=== PATIENT | male | born 2005 | race Caucasian/White ===

== ENCOUNTER 2024-09-14 21:19 | Emergency (ER) | payer MEDICAID, SELFPAY ==
[2024-09-14 21:20] VITALS: BMI 34.8
--- NOTE | 2024-09-14 21:39 | EDNOTE_ITS ---
ED General RME/HPI General Chief complaint: General Adult/Misc Complain Stated complaint: INGROWN TOENAIL BILATERAL Time Seen by Provider: 09/14/24 21:26 Arrival date/time: 09/14/24 21:19 RME / HPI RME / HPI narrative: This section includes all my notes and documentations, including HPI, PE, and ED course. Zaid Marinelli MD HPI: 19yo male here with a couple week history of severe pain in both big toes. With redness and swelling. Sister thinks they are due to ingrown toenails. No fever chills or bodyaches. No other complaints. ROS: All negative except as documented in HPI. Physical Exam: General: Alert and oriented. Appears uncomfortable. Eyes: Conjunctivae and lids clear. ENT: No nasal congestion. Neck: Supple. Lungs: No respiratory distress. Skin: Warm and dry. Neuro: Alert and oriented X 3. Great Toe: Each toe remarkable for bilateral ingrown nails. Each toe remarkable for severe edema and erythema and calor and tenderness. At this point, diagnoses include Ingrown nail and Cellulitis. Treatment here included Tylenol with Codeine, Augmentin, Ibuprofen, and topical lidocaine. He started to feel better. Recommended a trial of outpatient treatment. Based on my best medical judgment, made decision no further evaluation or treatment indicated at this time. Patient understands and agrees to the discharge instructions customized and printed, see below. Discharge Instructions from Dr. Marinelli printed for you: 1. You have severe ingrown nails of your both big toes with infections. 2. To help the healing process, minimal weightbearing and elevate above the waist level for 3 days is much as possible. 3. Augmentin to kill the germs causing the infections. 4. Ibuprofen 800 mg every 6-8 hours today and tomorrow to decrease inflammation then as needed. Tylenol with codeine for severe pain. 5. Prednisone to decrease inflammation and swelling. 6. During the day, soak in warm water and Epsom salt for 20 minutes every 4 hours. Try to gently pull out the ingrown nails. As the swelling goes down, this can be possible. 7. Apply topical lidocaine ointment for pain relief. 8. See a private doctor on 09/16/2024 for recheck and further care. If needed, ask for help finding a doctor who can pull out the toenails for you. 9. Seek immediate medical care with worsening, fever, or with any concerns. Zaid Marinelli MD Related Data Previous Rx's ?Medication ?Instructions ?Recorded polyethylene glycol 3350 17 4 g PO QDAY PRN constipati on #119 09/25/23 gram/dose oral powder (ClearLax) grams acetaminophen 300 mg-codeine 30 mg 2 tab PO Q8H PRN pa in #20 tabs 09/14/24 tablet amoxicillin 875 mg-potassium 1 tab PO BID #20 tabs 03/02 clavulanate 125 mg tablet ibuprofen 800 mg tablet 800 mg PO Q8H PRN pain #30 t abs 09/14/24 prednisone 50 mg tablet 50 mg PO QDAY #5 tabs Allergies Allergy/AdvReac Type Severity Reaction Status Date / Time No Known Allergies Allergy Verified 11/09/23 01:18 Review of Systems Review of Systems Systems Reviewed: All systems reviewed, normal except as documented Past Medical History Past Medical History CARDIAC: Negative Congestive Heart Failure RESPIRATORY: Negative Chronic Obstructive Pulmonary Disease (COPD) GENITOURINARY: Positive Renal Disease and Dialysis ENDOCRINE: Negative Diabetes Mellitus Type 1 or Diabetes Mellitus Type 2 Social History SMOKING STATUS: Never smoker SECOND HAND EXPOSURE: No SUBSTANCE USE: marijuana ED Exam Narrative Physical exam: As noted in HPI. Course Quality Measures none Orders Category Date Time Status ACETAMINOPHEN w/COD 300-30 [Tylenol w/Cod #3] Med 09/14/24 21:44 Discontinued 2 tab PO X1 ONE Amoxicillin/Pot Clav 875 [Augmentin 875] Med 09/14/24 21:44 Discontinued 1 tab PO X1 ONE Ibuprofen Tab [Motrin Tab] Med 09/14/24 21:44 Discontinued 800 mg PO X1 ONE Lidocaine/Prilocaine Cr 5Gm [Emla Cr] Med 09/14/24 21:44 Discontinued See Dose Instructions TOP X1 ONE Vital Signs Vital signs: Vital Signs Temperature 99.6 F 09/14/24 22:02 Pulse Rate 79 09/14/24 22:02 Respiratory Rate 18 09/14/24 22:02 Blood Pressure 131/88 H 09/14/24 22:02 Pulse Oximetry (%) 96 09/14/24 22:02 Oxygen Delivery Method Room Air 09/14/24 22:02 [facility] Patient data External records reviewed:: [facility] previous records (Per chart review, patient was seen here on 11/09/23 for a leg sprain.) Clinical information provided by:: patient Social determinants that could affect healthcare access:: none Patient has the following chronic illnesses:: none How is presenting disease/condition affected by chronic disease/condition?: no chronic disease Evaluation data The following diagnostics were reviewed and interpreted by me:: other (specify) (none) Lab and/or radiology exams considered but not ordered:: none Interpretation Summary: none Medications Medications considered but not ordered:: none Medication administrations:: Medication Administration History Discontinued Medications Acetaminophen/Codeine Phosphate (Acetaminophen W/Cod 300-30 Tablet) 2 tab PO X1 ONE Stop: 09/14/24 21:45 Last Admin: 09/14/24 22:17 Dose: 2 tab Documented By: RB Amoxicillin/Clavulanate Potassium (Amoxicillin/Pot Clav 875 Tablet) 1 tab PO X1 ONE Stop: 09/14/24 21:45 Last Admin: 09/14/24 22:17 Dose: 1 tab Documented By: RB Ibuprofen (Ibuprofen Tab 400 Mg Tablet) 800 mg PO X1 ONE Stop: 09/14/24 21:45 Last Admin: 09/14/24 22:17 Dose: 800 mg Documented By: RB Lidocaine/Prilocaine (Lidocaine/Prilocaine Cr 5gm 5 Gm Tube) 0 gm TOP X1 ONE Stop: 09/14/24 21:45 Last Admin: 09/14/24 22:18 Dose: 5 gm Documented By: RB Comments: 1 application Tylenol with Codeine, Augmentin, Ibuprofen, Emla Consultations Consultation(s) initiated? (list below): No Diagnosis Differential Diagnosis ED Complaint MDM: Made clinical diagnosis of ingrown nails with cellulitis. Most likely diagnosis given after review of the tests above:: Ingrown nail Cellulitis Admission Indicated Admission indicated?: not indicated Explain why admission is indicated or not indicated:: No criteria for admission. Admission Request Was there a request for admission?: No Disposition Plan Disposition Plan: Discharge Discharge Attestation Discharge Attestation: The patient and all family members were given an opportunity to ask questions and understood the discharge instructions. Discharge instructions specifically effects, indications for sooner follow up or return to the emergency department, and the expected course of current diagnosis. Patient condition: Stable Medical Decision Making MDM Narrative MDM Narrative: Scribe Attestation: 09/14/24 Joleen Figueroa am scribing for and in the presence of Dr. Marinelli. Differential Diagnosis Differential Diagnosis: Made clinical diagnosis of ingrown nails with cellulitis. Discharge Plan Plan Patient Disposition: HOME (Self Care) Prescriptions/Referrals Prescriptions/Med Rec: New ibuprofen 800 mg tablet 800 mg PO Q8H PRN (Reason: pain) Qty: 30 0RF acetaminophen-codeine 300-30 mg tablet 2 tab PO Q8H MDD 6 PRN (Reason: pain) Qty: 20 0RF prednisone 50 mg tablet 50 mg PO QDAY Qty: 5 0RF amoxicillin-pot clavulanate 875-125 mg tablet 1 tab PO BID Qty: 20 0RF No Action polyethylene glycol 3350 [ClearLax] 17 gram/dose powder 4 g PO QDAY PRN (Reason: constipation) Qty: 119 0RF Referrals: Temporary Provider,ED [Physician] - In 1 week Problem List Clinical Impression: Ingrown nail, Cellulitis Patient/Caregiver Discharge Instructions Discharge Activity: activity as tolerated Education Materials: ED Toenail Ingrown Infec Abx Onl Additional Instructions: Discharge Instructions from Dr. Marinelli printed for you: 1. You have severe ingrown nails of your both big toes with infections. 2. To help the healing process, minimal weightbearing and elevate above the waist level for 3 days is much as possible. 3. Augmentin to kill the germs causing the infections. 4. Ibuprofen 800 mg every 6-8 hours today and tomorrow to decrease inflammation then as needed. Tylenol with codeine for severe pain. 5. Prednisone to decrease inflammation and swelling. 6. During the day, soak in warm water and Epsom salt for 20 minutes every 4 hours. Try to gently pull out the ingrown nails. As the swelling goes down, this can be possible. 7. Apply topical lidocaine ointment for pain relief. 8. See a private doctor on 09/16/2024 for recheck and further care. If needed, ask for help finding a doctor who can pull out the toenails for you. 9. Seek immediate medical care with worsening, fever, or with any concerns. Print Language: Mauritanian Stand Alone Forms: Brittany Award Info., Patient Portal Info Letter
[2024-09-14 22:02] VITALS: BP 131/88; PULSE 79; RESP 18; TEMP 37.6; O2SAT 96
[2024-09-14] MEDS: ACETAMINOPHEN w/COD 300-30 TABLET 2 TAB PO (22:17)
[2024-09-14] MEDS: IBUPROFEN TAB 400 MG TABLET 800 MG PO (22:17)
[2024-09-14] MEDS: AMOXICILLIN/POT CLAV 875 TABLET 1 TAB PO (22:17)
[2024-09-14] MEDS: LIDOCAINE/PRILOCAINE CR 5GM 5 GM TUBE TOP (22:18)
== END 2024-09-14 22:34 | disposition home or self-care (01) ==
LOC: SERX 22:39
PROVIDERS: Emergency Provider Emergency Medicine; PCP Nurse Practitioner Family
DX: L60.0 Ingrowing nail (principal); L03.032 Cellulitis of left toe; L03.031 Cellulitis of right toe
CPT/HCPCS: 99282; A9270

== ENCOUNTER 2025-04-23 06:26 | Emergency (ER) | payer MEDICAID, SELFPAY ==
[2025-04-23 06:28] VITALS: BMI 33.5
[2025-04-23 06:34] VITALS: BP 126/86; PULSE 77; RESP 17; TEMP 37.1; O2SAT 99
--- NOTE | 2025-04-23 06:47 | XR_ITS ---
Examination: Abdomen sonogram, Limited Date and time of exam: April 23, 2025, 0734 hours INDICATIONS: Right upper abdominal pain beginning last night 6:00 p.m. after dinner Technique: Real-time mooney scale transabdominal sonographic images of the upper abdomen obtained. Findings: Multiple gallstones Normal gallbladder wall 0.15 cm Common bile duct is enlarged for a patient of this age, 0.60 cm no definite stones Pancreas obscured by bowel gas Liver 17.63 cm no liver lesions Normal hepatopetal portal venous flow Patent IVC IMPRESSION: Cholelithiasis, negative for cholecystitis Abnormal enlargement common bile duct 0.60 cm, if biliary colic is a clinical consideration, suggest MRCP follow-up
--- NOTE | 2025-04-23 06:47 | XR_ITS ---
Examination: CT abdomen and pelvis without contrast. Coronal 3-D reconstructions. Sagittal 2-D reconstructions. Date and time of exam: April 23, 2025, 0807 hours INDICATIONS: Onset bilateral flank pain beginning this morning CTDI: vol (mGy): 12.9 DLP: (mGycm): 742 Technique: Axial images of the abdomen have been obtained, 3 mm slice thickness Intravenous contrast material has not been administered. Low dose protocols were performed. One or more of the following dose reduction techniques were used; automated exposure control, adjustment of the mA and/or KV according to patient size, use of iterative reconstruction technique. Findings: 5 mm pulmonary nodule right lower lobe image 28 No visualized liver or splenic lesion No gallstones No pancreatic or adrenal mass No renal or ureteral calculi, no hydronephrosis Aorta normal size No bowel obstruction Normal appendix No diverticulitis Normal seminal vesicles No prostatomegaly Contracted urinary bladder no bladder calculi Moderate osteopenia IMPRESSION: 5 mm pulmonary nodule right lower lobe, recommend PA lateral chest follow-up No renal or ureteral calculi, no hydronephrosis Normal appendix No bowel obstruction or diverticulitis No bladder mass or bladder calculi
--- NOTE | 2025-04-23 07:09 | PD.EDADULT ---
ED General RME/HPI General Chief complaint: Abdominal Pain Stated complaint: BILATERAL FLANK PAIN Time Seen by Provider: 04/23/25 06:33 Arrival date/time: 04/23/25 06:26 RME / HPI RME / HPI narrative: 20-year-old male with a past medical history of rhabdomyolysis secondary to a trauma over a year ago when he was placed on dialysis for a brief period of time and was subsequently taken off of it, who presents to the ER complaining of bilateral flank pain radiating towards his stomach. Related Data Previous Rx's ?Medication ?Instructions ?Recorded polyethylene glycol 3350 17 4 g PO QDAY PRN constipation #119 09/25/23 gram/dose oral powder (ClearLax) grams acetaminophen 300 mg-codeine 30 mg 2 tab PO Q8H PRN pain #20 tabs 09/14/24 tablet amoxicillin 875 mg-potassium 1 tab PO BID #20 tabs 09/14/24 clavulanate 125 mg tablet ibuprofen 800 mg tablet 800 mg PO Q8H PRN pain #30 tabs 09/14/24 prednisone 50 mg tablet 50 mg PO QDAY #5 tabs 09/14/24 Allergies Allergy/AdvReac Type Severity Reaction Status Date / Time No Known Allergies Allergy Verified 04/23/25 06:27 ED Exam Narrative Physical exam: Constitutional: Patient alert and oriented. Well appearing. No acute distress. Not toxic appearing. Head: Normocephalic, atraumatic. Eyes: Periorbital regions bilaterally normal to inspection. Conjunctiva clear bilaterally. Sclera anicteric bilaterally. Pupils equal, round, reactive to light bilaterally. Extraocular movements intact bilaterally. Mouth/Throat: Mucous membranes moist. No stridor or muffled voice. No trismus. Handling secretions without difficulty. Airway widely patent. Neck: Supple. Trachea midline. No JVD. No nuchal rigidity. Normal range of motion. Respiratory: Normal effort. No accessory muscle use or respiratory distress. Lungs clear to auscultation bilaterally without rhonchi, wheezes, or crackles. Cardiovascular: RRR. Normal S1/S2. No murmurs or rubs. Radial pulses intact bilaterally. Abdomen: Soft. Non-distended. Positive mild epigastric tenderness. No pulsatile mass. No guarding or rebound. Negative Paz?s sign. Negative McBurney?s point tenderness. Negative Rovsing?s. Back: No midline tenderness or step-offs. No CVA tenderness to palpation bilaterally. Positive paralumbar tenderness to palpation bilaterally Upper Extremities: No gross deformities. Lower Extremities: No gross deformities. No edema or calf tenderness. Neuro: Speech normal. No gross motor or sensory deficits to upper or lower extremities bilaterally. GCS 15. CN II?XII grossly intact. Skin: Warm, dry, normal color. Psych: Normal affect. Cooperative. Normal insight. Course Quality Measures none Orders Category Date Time Status EKG (ED ONLY) *Do not use* NOW Care 04/23/25 09:48 Completed NPO NOW Care 04/23/25 06:47 Active Diet NPO (NOW) Diet 04/23/25 06:[address] abdomen pelvis wo con Stat Exams 04/23/25 06:47 Completed EKG (ED Only) Stat Exams 04/23/25 09:48 Draft US abdomen limited Stat Exams 04/23/25 06:47 Completed XR chest 2V Stat Exams 04/23/25 08:50 Completed Amylase Stat Lab 04/23/25 09:53 Completed CBC Stat Lab 04/23/25 07:05 Completed CBC Stat Lab 04/23/25 09:53 Completed CMP [Comprehensive Metabolic Panel] Stat Lab 04/23/25 07:05 Completed CMP [Comprehensive Metabolic Panel] Stat Lab 04/23/25 09:53 Completed Lipase Stat Lab 04/23/25 07:05 Completed Lipase Stat Lab 04/23/25 09:53 Completed Partial Thromboplastin Time Stat Lab 04/23/25 07:05 Completed Prothrombin Time with INR Stat Lab 04/23/25 07:05 Completed Urinalysis Stat Lab 04/23/25 07:25 Completed Urine Culture Stat Lab 04/23/25 07:25 Received Ketorolac Inj [Toradol Inj] Med 04/23/25 06:47 Discontinued 30 mg IM X1 ONE Ondansetron Odt [Zofran Odt] Med 04/23/25 06:47 Discontinued 4 mg PO X1 ONE Reevaluation(s) Reevaluation #1: At the time of reassessment, the patient remains alert and oriented ?3 with GCS 15. Vitals are normal, pain is controlled, and the patient is tolerating oral intake without nausea or vomiting. The patient is agreeable to discharge and verbalizes understanding of the diagnosis, studies, treatment plan, medications (including side effects/precautions), and strict ER return precautions as discussed in the ED. All concerns were addressed, and the patient is comfortable with the plan. Time: 11:26 Vital Signs Vital signs: Vital Signs Temperature 98.8 F 04/23/25 06:34 Pulse Rate 77 04/23/25 06:34 Respiratory Rate 17 04/23/25 06:34 Blood Pressure 126/86 H 04/23/25 06:34 Pulse Oximetry (%) 99 04/23/25 06:34 Oxygen Delivery Method Room Air 04/23/25 06:34 PROCEDURES: EKG Interpretation #1: Date of EK04/23/25 Time of EK:25 Rate: 67 Interpretation: Reviewed by me EKG Impression: Normal sinus rhythm, No acute ST-T changes and Normal axis Discharge Plan Plan Patient Disposition: HOME (Self Care) Patient condition on transfer: Stable Prescriptions/Referrals Prescriptions/Med Rec: No Action polyethylene glycol 3350 [ClearLax] 17 gram/dose powder 4 g PO QDAY PRN (Reason: constipation) Qty: 119 0RF ibuprofen 800 mg tablet 800 mg PO Q8H PRN (Reason: pain) Qty: 30 0RF acetaminophen-codeine 300-30 mg tablet 2 tab PO Q8H MDD 6 PRN (Reason: pain) Qty: 20 0RF prednisone 50 mg tablet 50 mg PO QDAY Qty: 5 0RF amoxicillin-pot clavulanate 875-125 mg tablet 1 tab PO BID Qty: 20 0RF Referrals: Darrell Alexandra PA-C [Primary Care Provider] - In 1 week Problem List Clinical Impression: Biliary colic, Cholelithiasis Patient/Caregiver Discharge Instructions Education Materials: Discharge Instructions for ..., ED Gallstones with Biliary Colic Additional Instructions: Follow up with your primary medical doctor within 24 hours. Return to the Emergency Room immediately for any new, worsening, continuing symptoms or any concerns at all. Return to the Emergency Room within 24 hours if you are unable to follow up with your primary medical doctor within 24 hours. Follow-up with Dr. Maurer this week as well. Eat a bland diet and avoid fatty foods. If your pain reoccurs at all you need to return to the ER immediately. Print Language: Scottish Stand Alone Forms: Brittany Award Info., Patient Portal Info Letter JORJE/CHIN Supervising Physician PA/[employer] Supervising Physician: Dr. Marinelli MDM Narrative [facility] hospital course (for use when minimal MDM required): [facility] The patient presents with abdominal pain without definite explanation found on evaluation today. It is very likely that patient is experiencing biliary colic. However, there are no signs of peritonitis or other life-threatening or serious etiology. I discussed the case in detail with Dr. Maurer GI specialist who advised patient safe for outpatient follow-up with PCP this week with strict ER return precautions. I have low suspicion for choledocholithiasis at this time. I clinically doubt any cholecystitis or cholangitis. Serial abdominal exams benign without peritonitis and patient tolerating p.o. without difficulty. I considered admission; however, given negative work up and imaging, admission is not indicated. The patient appears stable for discharge and has been instructed to return for re-evaluation immediately if the symptoms worsen or change in any way. If the symptoms are not resolved in 24-48 hours, the patient is asked to get rechecked by their PMD or return to the ED. Patient understands that if his pain reoccurs he needs to return to the ER immediately. Labs Lab(s) Interpretation(s): EKG without acute ischemia, high grade AV block, arrhythmia CBC without severe leukocytosis, anemia, or thrombocytopenia-WBC count is normal at 10 CMP without severe hyperbilirubinemia, transaminitis, acute renal failure or severe electrolyte derangement-AST is minimally elevated at 43, ALT is minimally elevated at 70 however alk phos is within normal limits at 103 and total bilirubin is low at 0.2 mg Lipase without severe elevation-normal at 30 UA negative Repeat lab work notes AST trending minimally down from 43-37, ALT trending minimally down from 70-63, total bili trending minimally up from 0.2-0.3 however no significant change, alk phos minimally decreased from 103-101, lipase remains equivalent at 30 and amylase is 41 Imaging Imaging interpretation: interpreted by me Imaging Interpretation(s): Chest x-ray without acute cardiopulmonary abnormality CT scan notes a 5 mm nodule in the right lower lobe however no acute intra-abdominal or pelvic abnormality and no mention of CBD or gallstones Ultrasound notable for cholelithiasis without cholecystitis however CBD 0.6 cm which is minimally enlarged for age, normal gallbladder wall no Yoni cholecystic fluid Medication Administration(s) Medication Administration History Discontinued Medications Ketorolac Tromethamine (Ketorolac Inj 30 Mg/Ml Vial) 30 mg IM X1 ONE Stop: 04/23/25 06:48 Last Admin: 04/23/25 07:29 Dose: 30 mg Documented By: [facility] Comments: nurse threw bottle in away before scanning due to being in triage Ondansetron HCl (Ondansetron Odt 4 Mg Tabrap) 4 mg PO X1 ONE; Protocol Stop: 04/23/25 06:48 Last Admin: 04/23/25 07:27 Dose: 4 mg Documented By: [facility] Consultations/Discussions re: Management Consult #1: Date/time: 04/23/25 9:44 AM Physician, specialty, service, details: Dr. Maurer, GI specialist, Case and plan discussed with and agreed upon who recommended repeat lab work Consult #2: Date/time: 04/23/25 11:18 am Physician, specialty, service, details: Dr. Maurer, GI specialist, updated on patient's status and repeat lab work who advised patient is safe for outpatient follow-up with PCP and MRCP is not necessary at this time he also advised that patient should be on a bland diet.
[2025-04-23 07:17] LABS: Basophils # (Auto) 0.1 Thou/mm3 (0.0-0.2); Basophils % (Auto) 1 % (0-2.5); Eosinophils # (Auto) 0.3 Thou/mm3 (0.0-0.5); Eosinophils % (Auto) 3 % (0-10); Hematocrit 42.0 % (41.0-53.0); Hemoglobin 14.8 g/dL (13.5-16.0); Immature Granulocytes Auto 0.03 Thou/mm3 (0.00-0.00); Lymphocytes # (Auto) 3.2 Thou/mm3 (1.0-4.8); Lymphocytes % (Auto) 31 % (10-50); Mean Corpuscular HGB Conc 35.2 g/dl (31.0-37.0); Mean Corpuscular Hemoglobin 32.2 pg (25.0-35.0); Mean Corpuscular Volume 91 fL (80-100); Monocytes # (Auto) 0.6 Thou/mm3 (0.0-0.8); Monocytes % (Auto) 6 % (0-12); Neutrophils # (Auto) 6.0 Thou/mm3 (1.8-7.7); Neutrophils % (Auto) 59 % (37-80); Nucleated Red Blood Cell # 0.00 Thou/mm3 (0.00-0.00); Nucleated Red Blood Cell % 0 /100 WBC (0); Platelet Count 274 Thou/mm3 (140-440); RDW Standard Deviation 40.7 fL (35.1-43.9); Red Blood Count 4.60 Miln/mm3 (4.50-5.90); White Blood Count 10.2 Thou/mm3 (3.8-10.6)
[2025-04-23] MEDS: ONDANSETRON ODT 4 MG TABRAP PO (07:27)
[2025-04-23] MEDS: KETOROLAC INJ 30 MG/ML VIAL IM (07:29)
[2025-04-23 07:51] LABS: Collection Type, Urine Voided; Squamous Epithelial Cell,Urine 0 /hpf (0-5)
[2025-04-23 07:51] LABS: INR 0.9 (0.9-1.3); Partial Thromboplastin Time 24.9 Seconds (22.0-36.0); Prothrombin Time 9.6 Seconds (9.0-12.2)
[2025-04-23 08:06] LABS: Bilirubin,Urine Negative (Negative); Blood,Urine Negative (Negative); Clarity,Urine Clear (Clear/Hazy); Color,Urine Lt-Yellow (Lt Yel-Yel); Glucose, Urine Negative (Negative); Hyaline Casts,Urine < 1 /hpf (0-1); Ketones,Urine Trace (Negative); Leukocyte Esterase,Urine Negative (Negative); Nitrite,Urine Negative (Negative); PH,Urine 6.5 (5.0-7.0); Protein,Urine Trace (Neg - Trace); RBC,Urine 1 /hpf (0-3); Specific Gravity,Urine 1.032 (1.001-1.035); Urobilinogen,Urine Negative mg/dL (0.0-1.0); WBC,Urine 1 /hpf (0-5)
--- NOTE | 2025-04-23 08:50 | XR_ITS ---
EXAMINATION: PA lateral chest 2 views TECHNIQUE: Upright PA lateral chest 2 views Date and time: April 23, 2025, 2054 hours, comparison September 06, 2023 INDICATIONS: Chest pain radiating to the back shortness of breath today FINDINGS: Normal heart size Lungs are clear. The osseous structures are intact IMPRESSION: No active disease
[2025-04-23 08:55] LABS: Alanine Aminotransferase 70 U/L (10-49); Albumin, Serum 5.2 gm/dL (3.5-5.0); Albumin/Globulin Ratio 2.7 (1.2-2.2); Alkaline Phosphatase 103 U/L (46-116); Anion Gap 11 (7-16); Aspartate Amino Transferase 43 U/L (0-34); BUN/Creatinine Ratio 13 Ratio (12-20); Bilirubin,Total 0.2 mg/dL (0.3-1.2); Blood Urea Nitrogen 16 mg/dL (9-23); Calcium 10.1 mg/dL (8.3-10.6); Calcium (Corrected) 10.1 mg/dL (8.5-10.1); Carbon Dioxide 28.0 mMol/L (20.0-31.0); Chloride 105 mMol/L (98-107); Creatinine (Component) 1.2 mg/dL (0.6-1.3); Estimated Creatinine Clearance 121.2 mL/min (>60); Globulin 1.9 gm/dL (2.3-3.5); Glucose 98 mg/dL (74-106); Lipase 30 U/L (12-53); Osmolality,Calculated 288 (275-295); Potassium 4.8 mMol/L (3.4-5.1); Sodium 144 mMol/L (136-145); Total Protein 7.1 gm/dL (5.7-8.2); eGFR > 60 See Note
--- NOTE | 2025-04-23 09:48 | EKG_ITS ---
[facility] Test Date: 2025-04-23 Pat Name: PRUDENCE PFEIFFER Department: Room: - Gender: Male Lopper: : 2005 Requested By: Tucker Tracey Order Number: [id number] Reading MD: Tucker Tracey Measurements Intervals [place] Rate: 67 P: 28 AK: 155 QRS: 29 QRSD: 104 T: 24 QT: 383 QTc: 405 Interpretive Statements SINUS RHYTHM No previous ECG available for comparison /store/S0/[id number]
[2025-04-23 10:14] LABS: Basophils # (Auto) 0.0 Thou/mm3 (0.0-0.2); Basophils % (Auto) 0 % (0-2.5); Eosinophils # (Auto) 0.3 Thou/mm3 (0.0-0.5); Eosinophils % (Auto) 3 % (0-10); Hematocrit 40.3 % (41.0-53.0); Hemoglobin 14.2 g/dL (13.5-16.0); Immature Granulocytes Auto 0.03 Thou/mm3 (0.00-0.00); Lymphocytes # (Auto) 2.6 Thou/mm3 (1.0-4.8); Lymphocytes % (Auto) 29 % (10-50); Mean Corpuscular HGB Conc 35.2 g/dl (31.0-37.0); Mean Corpuscular Hemoglobin 32.2 pg (25.0-35.0); Mean Corpuscular Volume 91 fL (80-100); Monocytes # (Auto) 0.5 Thou/mm3 (0.0-0.8); Monocytes % (Auto) 6 % (0-12); Neutrophils # (Auto) 5.5 Thou/mm3 (1.8-7.7); Neutrophils % (Auto) 62 % (37-80); Nucleated Red Blood Cell # 0.00 Thou/mm3 (0.00-0.00); Nucleated Red Blood Cell % 0 /100 WBC (0); Platelet Count 263 Thou/mm3 (140-440); RDW Standard Deviation 40.7 fL (35.1-43.9); Red Blood Count 4.41 Miln/mm3 (4.50-5.90); White Blood Count 8.9 Thou/mm3 (3.8-10.6)
[2025-04-23 10:30] LABS: Alanine Aminotransferase 63 U/L (10-49); Albumin, Serum 5.1 gm/dL (3.5-5.0); Albumin/Globulin Ratio 2.7 (1.2-2.2); Alkaline Phosphatase 101 U/L (46-116); Anion Gap 10 (7-16); Aspartate Amino Transferase 37 U/L (0-34); BUN/Creatinine Ratio 12 Ratio (12-20); Bilirubin,Total 0.3 mg/dL (0.3-1.2); Blood Urea Nitrogen 13 mg/dL (9-23); Calcium 9.9 mg/dL (8.3-10.6); Calcium (Corrected) 9.9 mg/dL (8.5-10.1); Carbon Dioxide 27.8 mMol/L (20.0-31.0); Chloride 105 mMol/L (98-107); Creatinine (Component) 1.1 mg/dL (0.6-1.3); Estimated Creatinine Clearance 132.2 mL/min (>60); Globulin 1.9 gm/dL (2.3-3.5); Glucose 96 mg/dL (74-106); Osmolality,Calculated 285 (275-295); Potassium 4.2 mMol/L (3.4-5.1); Sodium 143 mMol/L (136-145); Total Protein 7.0 gm/dL (5.7-8.2); eGFR > 60 See Note
[2025-04-23 11:08] LABS: Amylase 41 U/L (30-118); Lipase 30 U/L (12-53)
== END 2025-04-23 12:35 | disposition home or self-care (01) ==
PROVIDERS: Physician Assistant; Emergency Provider Emergency Medicine; PCP Physician Assistant
DX: K80.70 Calculus of gallbladder and bile duct without cholecystitis without obstruction (principal)
CPT/HCPCS: 36415; 71046; 74176; 76705; 80053; 81001; 82150; 83690; 85025; 85610; 85730; 87086; 93005; 96372; 99284; J1885; Q0162